=== PATIENT | female | born 1950 ===

== ENCOUNTER → 2020-05-04 09:02 | Outpatient (BNVA) | payer OTHER, SELFPAY | PROVIDERS: PCP Family Medicine; Visit Provider Anesthesiology ==

== ENCOUNTER → 2020-05-18 09:46 | Outpatient (BNVA) | payer OTHER, SELFPAY | PROVIDERS: PCP Dentist Pediatric Dentistry; Visit Provider Anesthesiology ==

== ENCOUNTER → 2020-06-02 08:13 | Outpatient (BNVA) | payer OTHER, SELFPAY | PROVIDERS: PCP Dentist Pediatric Dentistry; Visit Provider Anesthesiology ==

== ENCOUNTER → 2020-06-30 10:19 | Outpatient (BNVA) | payer OTHER, SELFPAY | PROVIDERS: PCP Dentist Pediatric Dentistry; Visit Provider Anesthesiology ==

== ENCOUNTER 2020-07-07 12:56 | Outpatient (REF) | payer OTHER, SELFPAY ==
--- NOTE | ~2020-07-07 | MR_ITS ---
EXAMINATION: MR LUMBAR SPINE WITHOUT CONTRAST CLINICAL INFORMATION: Spondylosis without myelopathy or radiculopathy COMPARISON: None TECHNIQUE: MRI of the lumbar spine was obtained using routine sequences without contrast. FINDINGS: VERTEBRAL BODIES AND PARASPINAL STRUCTURES: There is grade 1 anterolisthesis at L4-L5 measuring 5 mm. Additional slight grade 1 anterolisthesis is present at L3-L4. The vertebral body heights are well-maintained. Marrow signal is unremarkable. Moderate loss of intervertebral disc space height is present at L1-L2 and L4-L5. Mild loss of height is present at L3-L4 and L5-S1. There are type I Modic changes present posteriorly at L1-L2. No additional endplate signal abnormalities are evident. The visualized paraspinal soft tissues are normal in appearance. No retroperitoneal abnormalities are evident. CONUS MEDULLARIS AND CAUDA EQUINA: Normal, terminating at the level of lower margin of L1. Cauda equina nerve roots are normal in thickness. SPINAL LEVELS: T11-T12: Facet degenerative changes are present bilaterally resulting in mild bilateral foraminal stenosis. No significant central canal stenosis is evident on sagittal imaging. T12-L1: There is no disc herniation, central canal or foraminal stenosis. L1-L2: There is mild bulging of the annulus associated with mild facet degenerative changes, left greater than right. This results in mild bilateral foraminal narrowing. No significant central canal stenosis is present. L2-L3: There is a very small right foraminal disc protrusion. Mild facet arthropathy and ligamentum flavum thickening is also present bilaterally. No significant central canal stenosis is present. There is mild foraminal narrowing bilaterally. L3-L4: There is uncovering of the disc secondary to anterolisthesis. A small superimposed central disc protrusion is also present. Moderate facet arthropathy and ligamentum flavum thickening is present bilaterally. This results in moderate central canal stenosis. Moderate foraminal stenosis is present bilaterally, with slight encroachment upon the exiting nerve roots bilaterally. L4-L5: There is uncovering of the disc secondary to anterolisthesis. Marked facet arthropathy and ligamentum flavum thickening is present bilaterally. Mild to moderate central canal stenosis is present. There is severe narrowing of the left neural foramen with encroachment upon the exiting nerve root. Moderate to severe foraminal stenosis is present on the right, also with encroachment upon the exiting nerve root. L5-S1: Small broad-based foraminal disc protrusions are present bilaterally. Marked right-sided facet arthropathy is present. Moderate facet arthropathy is present on the left. No significant central canal stenosis is present. There is severe narrowing of the neural foramina bilaterally, with encroachment upon the exiting nerve roots. MR/MR lumbar spine wo con IMPRESSION: Grade 1 anterolisthesis at L3-L4 and L4-L5 secondary to facet arthropathy. Moderate multilevel lumbar spondylosis as detailed above. Central canal stenosis is greatest at L3-L4 where moderate central canal stenosis is present. Mild to moderate canal stenosis is present at L4-L5. There is severe foraminal narrowing bilaterally at L5-S1 and on the left at L4-L5 with moderate to severe foraminal stenosis on the right at L4-L5. Moderate foraminal stenosis is present bilaterally at L3-L4.
== END 2020-07-07 12:57 | disposition home or self-care (01) ==
LOC: HO.MRI 12:56
PROVIDERS: Visit Provider Anesthesiology
DX: M47.816 Spondylosis without myelopathy or radiculopathy, lumbar region (principal)
CPT/HCPCS: 72148

== ENCOUNTER → 2020-07-27 10:13 | Outpatient (BNVA) | payer OTHER, SELFPAY | PROVIDERS: PCP Dentist Pediatric Dentistry; Visit Provider Nurse Practitioner Family ==